=== PATIENT | female | born 1945 | race Caucasian/White ===

== ENCOUNTER 2018-02-22 01:43 | Emergency (ER) | payer MEDICARE, OTHER ==
--- NOTE | 2018-02-22 01:48 | ER Report ---
History and Physical Time Seen By MD: 01:47 HPI/ROS CHIEF COMPLAINT: Dyspnea HISTORY OF PRESENT ILLNESS: 72-year-old female from [place] who traveled to [facility]. She's in route back to [place]. Patient states she developed cold symptoms and [facility]. She's been having a productive cough of yellow sputum for several days. She woke up with a pulse ox of 50%, disoriented. She thinks her O2 condenser was not working correctly. Patient states her doctors have diagnosed her with COPD, although she never smoked. REVIEW OF SYSTEMS: Respiratory: As above Cardiovascular: No chest pain, no palpitations. Gastrointestinal: No vomiting, no abdominal pain. Musculoskeletal: No back pain. Allergies: Coded Allergies: Sulfa (Sulfonamide Antibiotics) (Verified Allergy, Severe, "POSSIBLE STROKE", 02/22/18) Home Meds Reported Medications Ergocalciferol (Vitamin D2) (VITAMIN D2) 50,000 Unit Capsule, 89883 UNIT PO QWEEK, CAPSULE 02/22/18 Atorvastatin Calcium (LIPITOR) 10 Mg Tablet, 1 TAB PO HS, TAB 02/22/18 Magnesium Oxide (MAGOX 400) 400 Mg Tablet, 400 MG PO BID 02/22/18 Losartan Potassium (LOSARTAN POTASSIUM) 50 Mg Tablet, 75 MG PO QDAY 02/22/18 Potassium Chloride (KLOR-CON 10) 10 Meq Tablet.er, 10 MEQ PO QDAY 02/22/18 Cetirizine Hcl (ZYRTEC) 10 Mg Tablet, 10 MG PO QDAY, TAB 02/22/18 Furosemide (FUROSEMIDE) 40 Mg Tablet, 1 TAB PO QDAY, TAB 02/22/18 Aspirin (ASPIR 81) 81 Mg Tablet.dr, 81 MG PO QDAY, TAB 02/22/18 Levothyroxine Sodium (LEVOTHYROXINE SODIUM) 100 Mcg Tablet, 150 MCG PO QDAY, TAB 02/22/18 Prednisone 10 Mg Tab (PREDNISONE 10 MG TAB) 10 Mg Tablet, 10 MG PO QDAY, TAB 02/22/18 Metformin Hcl (METFORMIN HCL) 1,000 Mg Tablet, 1 TAB PO BID, TAB 02/22/18 Cyanocobalamin (Vitamin B-12) (Vitamin B-12) 1,000 Mcg Capsule 02/22/18 Gabapentin (GABAPENTIN) 600 Mg Tablet, 600 MG PO QID 02/22/18 Past Medical/Surgical History 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 COPD, bronchoscopy of right hilar mass 6 months ago. Negative for malignancy, admission 5 weeks ago with viral pneumonia Reviewed Nurses Notes: Yes Old Medical Records Reviewed: Yes Constitutional Vital Sign - Last 24 Hours 02/22/18 02/22/18 02/22/18 02/22/18 01:49 01:50 02:00 02:07 Temp 98.6 Pulse 105 92 Resp 20 20 B/P (MAP) 184/102 (129) 184/102 Pulse Ox 83 O2 Delivery Nasal Cannula O2 Flow Rate 6.0 02/22/18 02/22/18 02/22/18 02/22/18 02:07 02:10 02:10 02:13 Pulse 93 90 Resp 20 Pulse Ox 91 98 97 O2 Delivery Nasal Cannula Nasal Cannula O2 Flow Rate 5.0 5.0 02/22/18 02/22/18 02/22/18 02/22/18 02:19 03:24 03:39 03:54 Pulse 92 86 84 B/P (MAP) 150/85 (106) Pulse Ox 92 92 02/22/18 02/22/18 02/22/18 02/22/18 04:00 04:00 04:04 04:04 Pulse 87 82 Resp 20 20 Pulse Ox 91 96 O2 Delivery Nasal Cannula Nasal Cannula O2 Flow Rate 5.0 5.0 Physical Exam General Appearance: The patient is alert, has no immediate need for airway protection and no current signs of toxicity. Audible wheezing, audible congestive cough. Vital signs stable, blood pressure elevated, pulse ox 83% on room air, requiring 5 L to get into the low 90s. HEENT: Pupils equal and round no injection. Oropharynx with mild erythema, no exudate Respiratory: Chest is non tender, bilateral expiratory wheezing, no Rales Cardiac: regular rate and rhythm Gastrointestinal: Abdomen is soft and non tender, no masses, bowel sounds normal. Musculoskeletal: Neck: Neck is supple and non tender. No JVD, no lymphadenopathy Extremities have full range of motion and are non tender. Skin: No rashes or lesions. DIFFERENTIAL DIAGNOSIS: After history and physical exam differential diagnosis was considered for shortness of breath including but not limited to pulmonary infectious process, COPD, asthma, pulmonary embolus and congestive heart failure. Medical Decision Making Data Points Result Diagram: 02/22/18 02002/22/18 0200 Laboratory Hematology Test 02/22/18 02:00 02/22/18 02:59 Red Blood Count 4.24 M/uL (4.17-5.56) Mean Corpuscular Volume 84.0 fL (80.0-96.0) Mean Corpuscular Hemoglobin 27.7 pg (26.0-33.0) Mean Corpuscular Hemoglobin Concent 33.0 g/dL (32.0-36.0) Red Cell Distribution Width 19.1 % (11.5-14.5) Mean Platelet Volume 8.2 fL (7.2-11.1) Neutrophils (%) (Auto) 70.4 % (39.4-72.5) Lymphocytes (%) (Auto) 17.8 % (17.6-49.6) Monocytes (%) (Auto) 8.8 % (4.1-12.4) Eosinophils (%) (Auto) 2.0 % (0.4-6.7) Basophils (%) (Auto) 1.0 % (0.3-1.4) Nucleated RBC Relative Count (auto) 0.1 /100WBC Neutrophils # (Auto) 6.3 K/uL (2.0-7.4) Lymphocytes # (Auto) 1.6 K/uL (1.3-3.6) Monocytes # (Auto) 0.8 K/uL (0.3-1.0) Eosinophils # (Auto) 0.2 K/uL (0.0-0.5) Basophils # (Auto) 0.1 K/uL (0.0-0.1) Nucleated RBC Absolute Count (auto) 0.01 K/uL Peripheral Blood Smear No Y/N D-Dimer Quantitative (PE/DVT) 0.78 ug/ml (0-0.50) Sodium Level 143 mmol/L (137-145) Potassium Level 3.5 mmol/L (3.5-5.0) Chloride Level 98 mmol/L (98-107) Carbon Dioxide Level 32 mmol/L (22-31) Blood Urea Nitrogen 19 mg/dl (7-18) Creatinine 1.00 mg/dl (0.52-1.04) Glomerular Filtration Rate Calc 54.7 Random Glucose 180 mg/dl (75-110) Lactate 2.3 mmol/L (0.7-2.1) Calcium Level 10.0 mg/dl (8.4-10.2) Total Bilirubin 0.4 mg/dl (0.2-1.3) Aspartate Amino Transf (AST/SGOT) 106 U/L (0-35) Alanine Aminotransferase (ALT/SGPT) 161 U/L (0-56) Alkaline Phosphatase 91 U/L (0-126) Troponin I 0.015 ng/ml B-Type Natriuretic Peptide 108 pg/ml (0-100) Total Protein 6.6 gm/dl (6.3-8.2) Albumin 3.6 g/dl (3.5-5.0) Urine Color Yellow Urine Clarity Clear Urine pH 5.0 pH (4.8-9.5) Urine Specific [place] 1.032 Urine Protein 100 mg/dL (NEGATIVE) Urine Glucose (UA) Negative mg/dL (NEGATIVE) Urine Ketones Negative mg/dL (NEGATIVE) Urine Blood Negative (NEGATIVE) Urine Nitrite Negative (NEGATIVE) Urine Bilirubin Negative (NEGATIVE) Urine Urobilinogen Negative mg/dL (0.2-1.9) Urine Leukocyte Esterase Negative (NEGATIVE) Urine RBC 1 /HPF (0-2/HPF) Urine WBC 1 /HPF (0-5/HPF) Urine Squamous Epithelial Cells Many /LPF (</=FEW) Urine Transitional Epithelial Cells Moderate /LPF (NONE-FEW) Urine Bacteria Negative /HPF (NONE-FEW) Urine Hyaline Casts Moderate /LPF (NONE-FEW) Urine Mucus Few /HPF (NONE-FEW) Chemistry Test 02/22/18 02:00 02/22/18 02:59 White Blood Count 9.0 k/uL (4.5-11.0) Red Blood Count 4.24 M/uL (4.17-5.56) Hemoglobin 11.8 g/dL (12.0-16.0) Hematocrit 35.6 % (34.0-47.0) Mean Corpuscular Volume 84.0 fL (80.0-96.0) Mean Corpuscular Hemoglobin 27.7 pg (26.0-33.0) Mean Corpuscular Hemoglobin Concent 33.0 g/dL (32.0-36.0) Red Cell Distribution Width 19.1 % (11.5-14.5) Platelet Count 266 K/uL (150-450) Mean Platelet Volume 8.2 fL (7.2-11.1) Neutrophils (%) (Auto) 70.4 % (39.4-72.5) Lymphocytes (%) (Auto) 17.8 % (17.6-49.6) Monocytes (%) (Auto) 8.8 % (4.1-12.4) Eosinophils (%) (Auto) 2.0 % (0.4-6.7) Basophils (%) (Auto) 1.0 % (0.3-1.4) Nucleated RBC Relative Count (auto) 0.1 /100WBC Neutrophils # (Auto) 6.3 K/uL (2.0-7.4) Lymphocytes # (Auto) 1.6 K/uL (1.3-3.6) Monocytes # (Auto) 0.8 K/uL (0.3-1.0) Eosinophils # (Auto) 0.2 K/uL (0.0-0.5) Basophils # (Auto) 0.1 K/uL (0.0-0.1) Nucleated RBC Absolute Count (auto) 0.01 K/uL Peripheral Blood Smear No Y/N D-Dimer Quantitative (PE/DVT) 0.78 ug/ml (0-0.50) Glomerular Filtration Rate Calc 54.7 Lactate 2.3 mmol/L (0.7-2.1) Calcium Level 10.0 mg/dl (8.4-10.2) Total Bilirubin 0.4 mg/dl (0.2-1.3) Aspartate Amino Transf (AST/SGOT) 106 U/L (0-35) Alanine Aminotransferase (ALT/SGPT) 161 U/L (0-56) Alkaline Phosphatase 91 U/L (0-126) Troponin I 0.015 ng/ml B-Type Natriuretic Peptide 108 pg/ml (0-100) Total Protein 6.6 gm/dl (6.3-8.2) Albumin 3.6 g/dl (3.5-5.0) Urine Color Yellow Urine Clarity Clear Urine pH 5.0 pH (4.8-9.5) Urine Specific [place] 1.032 Urine Protein 100 mg/dL (NEGATIVE) Urine Glucose (UA) Negative mg/dL (NEGATIVE) Urine Ketones Negative mg/dL (NEGATIVE) Urine Blood Negative (NEGATIVE) Urine Nitrite Negative (NEGATIVE) Urine Bilirubin Negative (NEGATIVE) Urine Urobilinogen Negative mg/dL (0.2-1.9) Urine Leukocyte Esterase Negative (NEGATIVE) Urine RBC 1 /HPF (0-2/HPF) Urine WBC 1 /HPF (0-5/HPF) Urine Squamous Epithelial Cells Many /LPF (</=FEW) Urine Transitional Epithelial Cells Moderate /LPF (NONE-FEW) Urine Bacteria Negative /HPF (NONE-FEW) Urine Hyaline Casts Moderate /LPF (NONE-FEW) Urine Mucus Few /HPF (NONE-FEW) Coagulation Test 02/22/18 02:00 D-Dimer Quantitative (PE/DVT) 0.78 ug/ml Urinalysis Test 02/22/18 02:59 Urine Color Yellow Urine Clarity Clear Urine pH 5.0 pH (4.8-9.5) Urine Specific [place] 1.032 Urine Protein 100 mg/dL (NEGATIVE) Urine Glucose (UA) Negative mg/dL (NEGATIVE) Urine Ketones Negative mg/dL (NEGATIVE) Urine Blood Negative (NEGATIVE) Urine Nitrite Negative (NEGATIVE) Urine Bilirubin Negative (NEGATIVE) Urine Urobilinogen Negative mg/dL (0.2-1.9) Urine Leukocyte Esterase Negative (NEGATIVE) Urine RBC 1 /HPF (0-2/HPF) Urine WBC 1 /HPF (0-5/HPF) Urine Squamous Epithelial Cells Many /LPF (</=FEW) Urine Transitional Epithelial Cells Moderate /LPF (NONE-FEW) Urine Bacteria Negative /HPF (NONE-FEW) Urine Hyaline Casts Moderate /LPF (NONE-FEW) Urine Mucus Few /HPF (NONE-FEW) Microbiology Microbiology Date/Time Source Procedure Growth Status 02/22/18 03:08 Blood Peripheral Draw Blood Culture - Preliminary NO GROWTH SO FAR, SET LATE. REINCUBATED Resulted 02/22/18 02:00 Blood Peripheral Draw Blood Culture - Preliminary NO GROWTH SO FAR, SET LATE. REINCUBATED Resulted EKG/Imaging EKG Interpretation 12 lead EK Rhythm: normal sinus rhythm [place]: normal QRS: Low voltage QRS,? old anterior Q waves ST segments: normal, no evidence of ischemia or dysrhythmia Monitor Interpretation: Normal Sinus Rhythm Imaging Results: CT scan of the CTA pulmonary angiogram was obtained. The results of the study are CTA CHEST WW/O CNTR (PULM ANG) HISTORY: Dyspnea. Oxygen saturation 50 percent. COMPARISON: None. TECHNIQUE: Pulmonary embolus protocol - Thin-slice axial imaging of the chest was performed during maximal pulmonary arterial opacification with intravenous nonionic iodinated contrast. 3D coronal slab MIPs and 2D reconstructions in the coronal and sagittal planes were performed to aid in pulmonary embolus detection. Night Order Selector images have been stored on PACS. One of the following dose optimization techniques was utilized in the performance of this exam: Automated exposure control; adjustment of the mA and/ or kV according to the patient's size; or use of an iterative reconstruction technique. Specific details can be referenced in the facility's radiology CT exam operational policy. CONTRAST: 100 mL of IV Isovue-370. FINDINGS: Pulmonary arteries: There is adequate opacification of the pulmonary arteries to the segmental branches. There are no filling defects in the visible pulmonary arteries. Pulmonary arteries are enlarged. Thoracic inlet: Normal. Aorta: No aneurysm or dissection. There is mild atherosclerosis of the aorta. Heart / Pericardium: The heart is normal. There is no ventricular septal deviation. There is no pericardial effusion. There is mild coronary artery calcification. Mediastinum / [place]: Normal mediastinum. There is a mass containing a coarse central calcification at the superior right hilum and involving the central right upper lobe. It narrows right-sided bronchi (axial image 33). Mass measures 7.3 x 3.8 x 5.1 cm and has irregular margins. There is a 1.2 cm right hilar lymph node on image 105. Lungs / Pleura: No pleural effusion. There is a 1.5 x 0.9 cm left upper lobe irregular nodule (image 24 series 5). There is an irregular lesion in the left lower lobe on image 54 that measures 2.5 x 2.4 cm. There are bilateral upper lobe and right middle lobe pulmonary nodules. The largest measures 9 x 6 mm in the right upper lobe on image 23. No pneumothorax. Upper abdomen: Normal. Musculoskeletal/vertebra/body wall: There are several vacuum clefts of the mid to lower thoracic spine, and there is mild degenerative change of the spine. There are a few Schmorl nodes. No listhesis. IMPRESSION: 1. No pulmonary embolism. 2. Irregular right superhilar lesion containing a central coarse calcification and narrowing right bronchi. In addition, there are other irregular lesions in the left upper lobe and left lower lobe, and there are bilateral upper lobe and right middle lobe pulmonary nodules. While possible findings could all be due to an infectious process, the possibility of malignancy is raised, particularly given the bronchial narrowing. 3. There is an enlarged right hilar lymph node that may be reactive or metastatic. The study was read by the radiologist. I viewed the images myself on the PACS system. ED Course/Re-evaluation Clinical Indication for ER IV: IV Access ED Course Patient was admitted to an examination room. H&P was done. The differential diagnoses was considered. Patient with acute shortness of breath, then the diagnosis of COPD. Her condenser only works to 3 L. She woke up with a pulse ox of 50% in her hotel room. She was brought in by her by private auto. Ration. On arrival here in the ER was 83% on room air. She is requiring 5 L to maintain saturations in the low 90s. Diagnostic evaluation was undertaken. She has a normal white blood cell count of 9000 without left shift. Her H&H are stable. Her d-dimer is elevated. A CT pulmonary angiogram is ordered. There was a large right hilar mass with obstruction of the right bronchial. Patient reports history of bronchoscopy in August of last year with negative biopsy results. Patient responds to IV Solu-Medrol and DuoNeb 2. Her saturations are improved. She still has significant audible rhonchorous breathing. Her case is discussed with our hospitalist, Dr. Ángel Odom who advises transfer to a facility with a higher level of care. She will need oncology and pulmonary consultation which is unavailable in our facility. In addition, she may need radiation oncology to treat this mass. Patient's results were discussed with her. I advised her that we need to transfer her to [facility] who have the specialty services available to her. 02/22/2018 4:25:25 am case was discussed with Dr. Fonseca hospitalist at [facility] who accepts the patient for transfer to his facility. Decision to Disposition Date: Feb 22, 2018 Decision to Disposition Time: 03:59 Depart Departure Latest Vital Signs Vital Signs Date Time Temp Pulse Resp B/P (MAP) Pulse Ox O2 Delivery O2 Flow Rate FiO2 02/22/18 04:04 96 Nasal Cannula 5.0 02/22/18 04:04 82 20 02/22/18 02:19 150/85 (106) 02/22/18 01:50 98.6 Impression: Primary Impression: Hypoxia Additional Impressions: COPD (chronic obstructive pulmonary disease) Hilar mass Type II diabetes mellitus Diabetic neuropathy Condition: Improved Disposition: XFER TO ACUTE CARE HOSPITAL Problem Qualifiers Additional Impressions: COPD (chronic obstructive pulmonary disease) COPD type: unspecified COPD Qualified Codes: J44.9 - Chronic obstructive pulmonary disease, unspecified Type II diabetes mellitus Diabetes mellitus senior living insulin use: without superintendent terminal use Diabetes mellitus complication status: with neurologic complications Diabetes mellitus complication detail: with unspecified neuropathy Qualified Codes: E11.40 - Type 2 diabetes mellitus with diabetic neuropathy, unspecified Diabetic neuropathy Diabetes mellitus type: type 2 Diabetes mellitus complication detail: with other neurological complication Qualified Codes: E11.49 - Type 2 diabetes mellitus with other diabetic neurological complication VARGHESE JOHNSON DO Feb 22, 2018 01:48
[2018-02-22] MEDS ORDERED: ALBUTEROL/IPRATROPIUM 3 ML NEB NEB ONE ×2 (02:00→04:00)
[2018-02-22] MEDS ORDERED: methylPREDNIS SUCC 125 MG/2ML IVP ONE (02:10)
--- NOTE | 2018-02-22 02:17 | EKG ---
[place] [facility] [place] NAME: STELLA SAINI : [id number] MR: [id number] V: [id number] EXAM DATE: ORDERING PHYSICIAN: VARGHESE JOHNSON TECHNOLOGIST: Chris Kingston Reason : Blood Pressure : / mmHG Vent. Rate : 096 BPM Atrial Rate : 096 BPM P-R Int : 168 ms QRS Dur : 086 ms QT Int : 340 ms P-R-T Axes : 068 057 031 degrees QTc Int : 429 ms Normal sinus rhythm Possible Left atrial enlargement Low voltage QRS Septal infarct , age undetermined No ST-T abnormalities Confirmed by KELLEN AQUINO ([id number]) on 02/22/2018 6:27:30 AM Referred By: Confirmed By:KELLEN AQUINO
[2018-02-22 02:19] VITALS: BP 150/85
[2018-02-22 02:19] LABS: PLATELET COUNT, AUTOMATED 266 K/uL (150-450)
[2018-02-22] MEDS ORDERED: NS 0.9% 150 ML BAG 150 ML ONE (02:36)
[2018-02-22] MEDS ORDERED: IOPAMIDOL 76% 100 ML INFUS BTL 100 ML ONE (02:36)
--- NOTE | 2018-02-22 03:35 | RADIOLOGY IMAGING REPORT ---
FACILITY: PATIENT NAME: Loretta Hamilton : 1945 MR: [id number] V: [id number] EXAM DATE: ORDERING PHYSICIAN: VARGHESE JOHNSON TECHNOLOGIST: Location: [facility] Patient: Loretta Hamilton : 1945 Visit/Account:[id number] Date of Sevice: 02/22/2018 ADDENDUM #1 Not mentioned in the body report, the right upper lobe mass abuts the right major fissure, but does c ross the fissure and involve the superior segment of the right lower lobe (image 28 series 5). Report Dictated By: Nancy Olguin at 02/22/2018 3:46 AM Report E-Signed By: Nancy Olguin at 02/22/2018 3:47 AM ORIGINAL REPORT CTA CHEST WW/O CNTR (PULM ANG) HISTORY: Dyspnea. Oxygen saturation 50 percent. COMPARISON: None. TECHNIQUE: Pulmonary embolus protocol - Thin-slice axial imaging of the chest was performed during ma ximal pulmonary arterial opacification with intravenous nonionic iodinated contrast. 3D coronal slab MIPs and 2D reconstructions in the coronal and sagittal planes were performed to aid in pulmonary emb olus detection. Coat Tailor images have been stored on PACS. One of the following dose optimization techniques was utilized in the performance of this exam: Autom ated exposure control; adjustment of the mA and/or kV according to the patient's size; or use of an i terative reconstruction technique. Specific details can be referenced in the facility's radiology CT exam operational policy. CONTRAST: 100 mL of IV Isovue-370. FINDINGS: Pulmonary arteries: There is adequate opacification of the pulmonary arteries to the segmental branch es. There are no filling defects in the visible pulmonary arteries. Pulmonary arteries are enlarged. Thoracic inlet: Normal. Aorta: No aneurysm or dissection. There is mild atherosclerosis of the aorta. Heart / Pericardium: The heart is normal. There is no ventricular septal deviation. There is no peric ardial effusion. There is mild coronary artery calcification. Mediastinum / [place]: Normal mediastinum. There is a mass containing a coarse central calcification at the superior right hilum and involving the central right upper lobe. It narrows right-sided bronchi ( axial image 33). Mass measures 7.3 x 3.8 x 5.1 cm and has irregular margins. There is a 1.2 cm right hilar lymph node on image 105. Lungs / Pleura: No pleural effusion. There is a 1.5 x 0.9 cm left upper lobe irregular nodule (image 24 series 5). There is an irregular lesion in the left lower lobe on image 54 that measures 2.5 x 2.4 cm. There are bilateral upper lobe and right middle lobe pulmonary nodules. The largest measures 9 x 6 mm in the right upper lobe on image 23. No pneumothorax. Upper abdomen: Normal. Musculoskeletal/vertebra/body wall: There are several vacuum clefts of the mid to lower thoracic spin e, and there is mild degenerative change of the spine. There are a few Schmorl nodes. No listhesis. IMPRESSION: 1. No pulmonary embolism. 2. Irregular right superhilar lesion containing a central coarse calcification and narrowing right br onchi. In addition, there are other irregular lesions in the left upper lobe and left lower lobe, and there are bilateral upper lobe and right middle lobe pulmonary nodules. While possible findings coul d all be due to an infectious process, the possibility of malignancy is raised, particularly given th e bronchial narrowing. 3. There is an enlarged right hilar lymph node that may be reactive or metastatic. These findings were discussed by phone with VARGHESE JOHNSON on 02/22/2018 3:28 AM. Report Dictated By: Nancy Olguin at 02/22/2018 3:13 AM Report E-Signed By: Nancy Olguin at 02/22/2018 3:30 AM WSN:[id number]
[2018-02-22] MEDS ORDERED: GABA-503 PO (03:53)
[2018-02-22] MEDS ORDERED: CYAN100058 (03:54)
[2018-02-22] MEDS ORDERED: METF-420 PO (03:55)
[2018-02-22] MEDS ORDERED: PRED-1 PO (03:56)
[2018-02-22] MEDS ORDERED: LEVO-3 PO (03:56)
[2018-02-22] MEDS ORDERED: ASPI-1471 PO (03:56)
[2018-02-22] MEDS ORDERED: FURO-47 PO (03:57)
[2018-02-22] MEDS ORDERED: CETI-176 PO (03:58)
[2018-02-22] MEDS ORDERED: POTA-23 PO (03:59)
[2018-02-22] MEDS ORDERED: MAGN400T52 PO (04:00)
[2018-02-22] MEDS ORDERED: LOSA50TA72 PO (04:00)
[2018-02-22] MEDS ORDERED: ATOR10TA24 PO (04:01)
[2018-02-22] MEDS ORDERED: ERGO500037 PO (04:02)
[2018-02-22] MEDS ORDERED: PIPERACILLIN/TAZO*3.375GM VIAL 3.375 GM in NS(*) 0.9% 100 ML ADDVANT BAG 100 ML IVPB ONE (04:25)
[2018-02-22] MEDS ORDERED: NS(*) 0.9% 1000 ML BAG 1,000 ML IV ONE (04:25)
== END 2018-02-22 05:05 | disposition short-term general hospital (02) ==
LOC: ER 02:00
DX: J44.9 Chronic obstructive pulmonary disease, unspecified (principal); E11.40 Type 2 diabetes mellitus with diabetic neuropathy, unspecified; E11.49 Type 2 diabetes mellitus with other diabetic neurological complication; R09.02 Hypoxemia; R91.8 Other nonspecific abnormal finding of lung field
CPT/HCPCS: 71275; 81001; 83605; 83880; 84484; 85025; 85379; 87040; 93005; 94640; 99285; J2543; J2930; J7030; J7050; J7620; Q9967; 82040; 82247; 82310; 82374; 82435; 82565; 82947; 84075; 84132; 84155; 84295; 84450; 84460; 84520

== ENCOUNTER → 2018-02-22 | Outpatient (CLI) | payer MEDICARE, OTHER ==
[~2018-02-22] MED LIST: ASPI-1471 PO; ATOR10TA24 PO; CETI-176 PO; CYAN100058; ERGO500037 PO; FURO-47 PO; GABA-503 PO; LEVO-3 PO; LOSA50TA72 PO; MAGN400T52 PO; METF-420 PO; POTA-23 PO; PRED-1 PO
== END ==
LOC: AMB 04:55
PROVIDERS: ATTEND Nurse Practitioner
DX: R22.2 Localized swelling, mass and lump, trunk (principal); R06.02 Shortness of breath; R05 Cough
CPT/HCPCS: A0425; A0426